=== PATIENT | female | born 1940 | race Caucasian/White ===

== ENCOUNTER 2017-12-25 06:05 | Emergency (ER) | payer MEDICARE ==
[~2017-12-25] VITALS: Ht 167.6 cm; Wt 80.0 kg
[~2017-12-25 06:05] MED LIST: AMLO10TA2 PO; ASPI81TA81; ATOR10TA15 PO; CALTCHW4 CHEW; CHOL100010; ESCI20TA PO; LEVO50TA4 PO; METR28.4 TOPICAL; MULTTAB67 PO; PROM6.256 PO; VALS1TAB70 PO; fish oil
[2017-12-25 06:32] VITALS: BP 124/57; PULSE 66; RESP 18; TEMP 97.8; O2SAT 98
--- NOTE | 2017-12-25 09:17 | PD ---
HPI Chief Complaint: GI Complaint Time Seen by Provider: 09:14 Travel History International Travel<30 days: No Contact w/Intl Traveler<30days: No Traveled to known affect area: No History of Present Illness HPI 77-year-old female came to the emergency room with history of vomiting and diarrhea that has been going on for the past 5 days. Patient says that she was having symptoms of dysuria, frequency about a week ago. She is going to the urgent care and was given Macrobid. After taking 2 doses of Macrobid she started getting the vomiting and diarrhea. She says the burning and the frequency has subsided. Patient has taken only 3 doses of the Macrobid. However because her vomiting and diarrhea has been continuous she is here. Patient says in the last 24 hours she must have had 10 episodes of diarrhea. They are watery. No blood in the stool. No known sick contacts. No previous history of C. difficile colitis. Vital signs are stable. PFSH Past Medical History Narrative Medical List of her past medical, surgical, social and family history is reviewed from the nursing note High Cholesterol: Yes Diminished Hearing: No GERD: Yes Hypertension: Yes Thyroid Disease: Yes (hypo) Tetanus Vaccination: > 5 Years Influenza Vaccination: Yes ?: Not Past Surgical History Hysterectomy: Yes Tonsillectomy: Yes Other Surgery: Yes (right mastecomy) Social History Alcohol Use: No Tobacco Use: No Substance Use: No Allergies-Medications (Allergen,Severity, Reaction): Coded Allergies: Sulfa (Sulfonamide Antibiotics) (Unverified Allergy, Intermediate, rash, ) amoxicillin (Unverified Adverse Reaction, Intermediate, diarrhea, 12/25/17) clavulanic acid (Unverified Adverse Reaction, Intermediate, diarrhea, ) Comments List of her allergies reviewed from the nursing note. Reported Meds & Prescriptions Reported Meds & Active Scripts Active Lomotil (Diphenoxylate-Atropine) 2.5-0.025 Mg Tab 1 Tab PO Q6H PRN Escitalopram (Escitalopram Oxalate) 20 Mg Tab 20 Mg PO DAILY Valsartan 320 Mg Tab 320 Mg PO DAILY Atorvastatin (Atorvastatin Calcium) 10 Mg Tab 10 Mg PO HS Amlodipine (Amlodipine Besylate) 10 Mg Tab 10 Mg PO DAILY Levothyroxine (Levothyroxine Sodium) 50 Mcg Tab 50 Mcg PO DAILY Promethazine-Codeine Liq 6.25-10 Mg/5 Ml Syrp 5 Ml PO Q4HR PRN May cause sedation, avoid driving/operating complex machinery. Reported D3 Adult (Cholecalciferol) 1,000 Unit Chew Metronidazole Topical 1 % Gel 1 Applic TOPICAL DAILY Multiple Vitamin 1 Tab 1 Tab PO DAILY Aspir-81 (Aspirin) 81 Mg Tabdr 81 Caltrate 600+D Soft Chews (Calcium Carbonate-Cholecalciferol) 600-800 Mg-Unit Chew 1 Tab CHEW [fish oil] Narrative Medication List of her home medications reviewed from the nursing note Review of Systems Except as stated in HPI: all other systems reviewed are Neg Gastrointestinal: Positive: Nausea, Vomiting, Diarrhea Physical Exam Narrative GENERAL: Awake, alert, anxious, mild distress SKIN: Focused skin assessment warm/dry. HEAD: Atraumatic. Normocephalic. EYES: Pupils equal and round. No scleral icterus. No injection or drainage. ENT: No nasal bleeding or discharge. Mucous membranes pink and moist. NECK: Trachea midline. No JVD. CARDIOVASCULAR: Regular rate and rhythm. No murmur appreciated. RESPIRATORY: No accessory muscle use. Clear to auscultation. Breath sounds equal bilaterally. GASTROINTESTINAL: Abdomen soft, non-tender, nondistended. Hepatic and splenic margins not palpable. MUSCULOSKELETAL: No obvious deformities. No clubbing. No cyanosis. No edema. NEUROLOGICAL: Awake and alert. No obvious cranial nerve deficits. Motor grossly within normal limits. Normal speech. PSYCHIATRIC: Appropriate mood and affect; insight and judgment normal. Data Data Last Documented VS Orders Orders Complete Blood Count With Diff (12/25/17 09:24) Basic Metabolic Panel (Bmp) (12/25/17 09:24) Sodium Chlor 0.9% 1000 Ml Inj (Ns 1000 M (12/25/17 09:30) C Diff Toxin Pcr (12/25/17 09:24) Urinalysis - C+S If Indicated (12/25/17 09:25) Potassium Chloride Eff (K-Lyte Cl Eff) (12/25/17 10:45) Sodium Chlor 0.9% 1000 Ml Inj (Ns 1000 M (12/25/17 10:45) Diphenoxylate/Atropine Tab (Lomotil Tab) (12/25/17 10:45) ^ Straight Catheter (12/25/17 11:06) Ed Discharge Order (12/25/17 11:38) Labs Laboratory Tests Test 12/25/17 09:40 12/25/17 10:00 12/25/17 10:55 White Blood Count 6.8 TH/MM3 Red Blood Count 4.47 MIL/MM3 Hemoglobin 12.3 GM/DL Hematocrit 36.8 % Mean Corpuscular Volume 82.5 FL Mean Corpuscular Hemoglobin 27.5 PG Mean Corpuscular Hemoglobin Concent 33.4 % Red Cell Distribution Width 13.9 % Platelet Count 269 TH/MM3 Mean Platelet Volume 7.8 FL Neutrophils (%) (Auto) 66.3 % Lymphocytes (%) (Auto) 23.8 % Monocytes (%) (Auto) 8.8 % Eosinophils (%) (Auto) 1.0 % Basophils (%) (Auto) 0.1 % Neutrophils # (Auto) 4.5 TH/MM3 Lymphocytes # (Auto) 1.6 TH/MM3 Monocytes # (Auto) 0.6 TH/MM3 Eosinophils # (Auto) 0.1 TH/MM3 Basophils # (Auto) 0.0 TH/MM3 CBC Comment DIFF FINAL Differential Comment Blood Urea Nitrogen 19 MG/DL Creatinine 1.02 MG/DL Random Glucose 133 MG/DL Calcium Level 8.2 MG/DL Sodium Level 139 MEQ/L Potassium Level 3.2 MEQ/L Chloride Level 107 MEQ/L Carbon Dioxide Level 24.0 MEQ/L Anion Gap 8 MEQ/L Estimat Glomerular Filtration Rate 53 ML/MIN Stool C. difficile Toxin (PCR) NEGATIVE Stl C. difficile Toxin Epiderm 027 PRESUMPTIVE NEGATIVE Urine Color YELLOW Urine Turbidity CLEAR Urine pH 5.5 Urine Specific [place] 1.007 Urine Protein NEG mg/dL Urine Glucose (UA) NEG mg/dL Urine Ketones NEG mg/dL Urine Occult Blood NEG Urine Nitrite NEG Urine Bilirubin NEG Urine Urobilinogen LESS THAN 2.0 MG/DL Urine Leukocyte Esterase SMALL Urine RBC 1 /hpf Urine WBC 3 /hpf Urine Squamous Epithelial Cells 4 /hpf Urine Transitional Epithelial Cells <1 /hpf Urine Bacteria RARE /hpf Microscopic Urinalysis Comment CULT NOT INDICATED MDM Medical Decision Making Medical Screen Exam Complete: Yes Emergency Medical Condition: Yes Medical Record Reviewed: Yes Differential Diagnosis Acute gastroenteritis, C. difficile colitis, electrolyte abnormality, dehydration Narrative Course 10:40 AM blood test results are back and patient has slightly low potassium level and BUN/creatinine is slightly elevated. She was given IV fluid bolus and IV Zofran. I have ordered for second fluid bolus and p.o. potassium replacement. Awaiting for the UA. She is also been given a dose of Lomotil. She will be discharged home shortly. Stool was sent for C. difficile colitis which is pending. Procedures EKG Prior to Arrival: No Diagnosis Primary Impression: Acute gastroenteritis Additional Impression: Dehydration Referrals: Primary Care Physician Additional Instructions: Take the medication as per the prescription direction. Keep yourself hydrated. Return to the ER if condition worsens or any other new concerns. Otherwise follow-up with your primary care. If his stool test comes back positive we will notify you. Med/Other Pt SpecificInfo: Prescription(s) given Scripts Diphenoxylate-Atropine (Lomotil) 2.5-0.025 Mg Tab 1 TAB PO Q6H Y for DIARRHEA, #6 TAB 0 Refills Prov: Neyda Mazariegos MD 12/25/17 Disposition: 01 DISCHARGE HOME Condition: Stable Neyda Mazariegos MD Dec 25, 2017 09:17
[2017-12-25] MEDS ORDERED: SODIUM CHLOR 0.9% 1000 ML INJ 1,000 ML IV ONE ×2 (09:30→10:45)
[2017-12-25 10:07] LABS: AUTOMATED NEUTROPHIL # 4.5 TH/MM3 (1.8-7.7); BASOPHIL % 0.1 % (0.0-2.0); EOSINOPHIL # 0.1 TH/MM3 (0-0.4); HEMATOCRIT 36.8 % (35.0-46.0); HEMOGLOBIN 12.3 GM/DL (11.6-15.3); LYMPH % 23.8 % (9.0-44.0); LYMPHOCYTE # 1.6 TH/MM3 (1.0-4.8); MEAN CELL VOLUME 82.5 FL (80.0-100.0); MEAN CORPUSCULAR HEMOGLOBIN 27.5 PG (27.0-34.0); MEAN CORPUSCULAR HGB CONC 33.4 % (32.0-36.0); MEAN PLATELET VOLUME 7.8 FL (7.0-11.0); MONO % 8.8 % (0.0-8.0); MONOCYTE # 0.6 TH/MM3 (0-0.9); NEUT % 66.3 % (16.0-70.0); PLATELET COUNT 269 TH/MM3 (150-450); RED BLOOD COUNT 4.47 MIL/MM3 (4.00-5.30); RED CELL DISTRIBUTION WIDTH 13.9 % (11.6-17.2); WHITE BLOOD COUNT 6.8 TH/MM3 (4.0-11.0)
[2017-12-25 10:24] LABS: CALCIUM 8.2 MG/DL (8.5-10.1); CREATININE 1.02 MG/DL (0.50-1.00)
[2017-12-25] MEDS ORDERED: DIPHENOXYLATE/ATROPINE 2.5 MG/0.025 MG TAB PO ONE (10:45)
[2017-12-25] MEDS ORDERED: POTASSIUM CHLORIDE 25 MEQ EFFERVESCENT TAB PO ONE (10:45)
[2017-12-25 11:31] LABS: BACTERIA, URINE RARE /hpf; BILIRUBIN, URINE NEG (NEG); BLOOD, URINE NEG (NEG); GLUCOSE,URINE NEG (NEG); KETONE, URINE NEG (NEG); NITRITE,URINE NEG (NEG); PH, URINE 5.5 (5.0-8.5); SQUAMOUS EPITHELIAL CELL URINE 4 /hpf (0-5); TRANSITIONAL EPI CELLS, URINE <1 /hpf; URINE COLOR YELLOW (YELLW/STRAW); URINE LEUKOCYTE ESTERASE SMALL (NEG)
[2017-12-25] MEDS ORDERED: LOMO2.5T PO (11:43)
== END 2017-12-25 12:29 | disposition home or self-care (01) ==
LOC: NEPD 06:05
DX: K52.9 Noninfective gastroenteritis and colitis, unspecified (principal); E86.0 Dehydration; E03.9 Hypothyroidism, unspecified; E78.00 Pure hypercholesterolemia, unspecified; I10 Essential (primary) hypertension
CPT/HCPCS: 80048; 81001; 85025; 87493; 96360; 99284; J7030